=== PATIENT | male | born 1950 | race Caucasian/White ===

== ENCOUNTER 2022-04-04 06:26 | Day surgery (SDC) | payer OTHER, SELFPAY ==
[2022-04-03 11:14] VITALS: BMI 34.2
[2022-04-04 06:51] VITALS: BMI 34.2
[2022-04-04 07:16] LABS: Glucose, Whole Blood 155 mg/dL (60-115)
[2022-04-04 08:41] VITALS: BP 139/88; PULSE 98; RESP 16; TEMP 36.6; O2SAT 95
--- NOTE | 2022-04-04 08:42 | PM.OPNEP ---
Procedure Note Date of Service: 04/04/22 Pre-op diagnosis: Acute kidney injury - resolved Post-op diagnosis: same Procedure: Removal of tunneled dialysis catheter Anesthesia: local Surgeon: Jace Fox Estimated blood loss (mL): 10 IV fluids (mL): 0 Pathology: none sent Condition: stable Disposition: PACU
[2022-04-04] MEDS: Lidocaine HCl 1 % MPF 5 ML VIAL 10 ML INFILTRATI (08:43)
--- NOTE | 2022-04-04 08:44 | W.PM.OPN ---
Operative Note Operative Note Date of Service: 04/04/22 Narrative: Patient was placed on the bed in a supine position. The catheter was prepped and draped in a sterile fashion. The skin was injected with 1% lidocaine. The catheter was removed with blunt dissection. Hemostasis was maintained by holding pressure for 5 minutes. A dressing was applied. The patient tolerated the procedure well.
--- NOTE | 2022-04-04 08:49 | PM.DS ---
DS: Providers Provider Date of Service: 04/04/22 Date of discharge: 04/04/22 Primary care physician: Naomi Metzger CNP Attending physician on admission: Jace Fox Attending physician on discharge: Jace Fox DS: Summary Time Spent with Patient Time attestation: Total time spent providing and/or coordinating discharge services: Discharge coordination time: Less than 30 minutes Quality: Safe Use of Opioids Does Pt have an Active Cancer Diagnosis on the Problem List?: No Quality: Stroke Does the patient have a stroke diagnosis?: No Physical Exam Vital Signs: Vital Signs: Last Vital Signs Temp 97.8 F 04/04/22 08:41 Pulse 98 04/04/22 08:41 Resp 16 04/04/22 08:41 BP 139/88 04/04/22 08:41 Pulse Ox 95 04/04/22 08:41 O2 Del Method 04/04/22 08:41 BMI result Body Mass Index 34.2 DS: Data Data Completed and Pending Labs on day of discharge: Laboratory Results - last 24 hr 04/04/22 07:12 POC Glucose 155 H Discharge Plan Discharge Referrals: Naomi Metzger CNP [Primary Care Provider] - 1 Week Discharge Orders: Discharge Order (Routine); Ordered 04/04/22 Ordered By: Jace Fox
== END 2022-04-04 08:57 ==
LOC: HO.SSS 06:26
PROVIDERS: PCP Registered Nurse Rehabilitation; Visit Provider Transplant Surgery
DX: Z49.01 Encounter for fitting and adjustment of extracorporeal dialysis catheter (principal); N18.6 End stage renal disease
CPT/HCPCS: 36589; 82947

== ENCOUNTER 2022-06-03 14:18 | Outpatient (REF) | payer OTHER, SELFPAY ==
[2022-06-03 14:43] LABS: MANUAL DIFF FLAG NO
[2022-06-03 15:20] LABS: Basophils Absolute Auto 0.1 X10*3/uL (0.0-0.2); Basophils Percent Auto 1.1 % (0-2); Eosinophils Absolute Auto 0.1 X10*3/uL (0.0-0.4); Eosinophils Percent Auto 1.5 % (0-4); Hematocrit 36.4 % (42.0-52.0); Hemoglobin 11.5 g/dl (14.0-18.0); Imm Gran Abs Auto 0.01 X10*3/uL (0.00-0.03); Imm Gran Pct Auto 0.2 % (0.0-0.4); Lymphocytes Absolute Auto 0.6 X10*3/uL (1.2-4.9); Lymphocytes Percent Auto 12.7 % (20-40); Mean Corpuscular HGB Conc 31.6 g/dl (31.0-36.0); Mean Corpuscular Hemoglobin 27.3 pg (27.0-33.0); Mean Corpuscular Volume 86.3 fL (80.0-98.0); Monocytes Absolute Auto 0.5 X10*3/uL (0.1-1.2); Monocytes Percent Auto 10.3 % (2-11); Neutrophils Absolute Auto 3.4 x10*3/uL (2.0-8.3); Neutrophils Percent Auto 74.2 % (45-73); Platelet Count 276 X10*3/uL (160-400); Red Blood Count 4.22 X10*6/uL (4.60-5.80); Red Cell Distribution Width 17.9 % (11.0-16.0); White Blood Count 4.6 X10*3/uL (4.8-10.8)
[2022-06-03 15:29] LABS: Appearance Urine CLEAR; Color Urine YELLOW; Glucose Urine UA Negative (NEG); Leukocyte Esterase Urine Small (1+) (Negative); Nitrite Urine NEG (NEG); PH 5.5 (5.0-8.0); Urine Blood Negative (NEG); Urine Ketones Negative (NEG); Urine Protein NEG (NEG-TRACE)
[2022-06-03 15:40] LABS: Albumin Level 3.3 g/dL (3.5-5.0); Anion Gap 15 (12-20); Blood Urea Nitrogen 42 mg/dL (9-16); Calcium 8.7 mg/dL (8.4-10.2); Carbon Dioxide 28 mmol/L (22-29); Chloride 101 mmol/L (96-108); Estimated Glomerular Filt Rate 47; Magnesium 1.8 mg/dL (1.6-2.6); Phosphorus 3.7 mg/dL (2.7-4.5); Potassium 4.4 mmol/L (3.3-5.1); Sodium 140 mmol/L (135-145)
[2022-06-03 15:43] LABS: Creatinine Urine 46.72 mg/dL; Microalbum/Creatinine Ratio Ur 53.5 ug/mg cr; Protein/Creatinine Ratio, Ur 0.17 (<0.2); Total Protein Urine Random 8 mg/dL (<12)
[2022-06-03 16:03] LABS: Vitamin D 25-OH Total 20.1 ng/mL (>30)
[2022-06-03 16:11] LABS: RBC Urine 0 /HPF (0); Renal Epithelial Cells Urine 1+ /LPF; Squamous Epithelial Cell Urine 2+ /LPF
[2022-06-05 11:57] LABS: PTHI 186 pg/mL (16-77)
== END 2022-06-03 14:19 | disposition home or self-care (01) ==
LOC: HO.LAB 14:18
PROVIDERS: PCP Registered Nurse Rehabilitation; Visit Provider Internal Medicine Nephrology
DX: N25.0 Renal osteodystrophy (principal); I12.9 Hypertensive chronic kidney disease with stage 1 through stage 4 chronic kidney disease, or unspecified chronic kidney disease; N18.4 Chronic kidney disease, stage 4 (severe); D63.1 Anemia in chronic kidney disease; E11.22 Type 2 diabetes mellitus with diabetic chronic kidney disease
CPT/HCPCS: 36415; 80051; 81001; 82040; 82043; 82306; 82310; 82565; 83735; 83970; 84100; 84156; 84520; 85025; 87086